=== PATIENT | female | born 1940 | race Caucasian/White ===

== ENCOUNTER 2024-05-30 11:31 | Day surgery (SDC) | payer MEDICARE, OTHER ==
[2024-05-30] MEDS ORDERED: dexAMETHasone sodium phosphate IJ ONE (11:32)
[2024-05-30] MEDS ORDERED: LIDOCAINE HCL 2% 100 MG/5 ML IJ ONE (11:32)
[2024-05-30] MEDS ORDERED: Lactated Ringers 500 ML IV ONE (11:39)
[2024-05-30] MEDS ORDERED: propofoL IV ONE (12:50)
--- NOTE | 2024-05-30 14:35 | XRAY ---
Indication: Right C2-C4 MBB. Intraoperative fluoroscopy provided for 22 seconds. 2 digital spot image submitted for interpretation demonstrates posterior needle tips projecting over expected right C2-C4 nerve roots. Correlate with intraoperative findings/report.
--- NOTE | 2024-05-30 15:20 | XRAY ---
22 seconds of fluoroscopy was used in surgery for a right C2-C4 MBB.
== END 2024-05-30 13:25 | disposition home or self-care (01) ==
LOC: SDC-PAIN 11:31
PROVIDERS: ATTEND Psychiatry & Neurology Pain Medicine
DX: M47.812 Spondylosis without myelopathy or radiculopathy, cervical region (principal)
CPT/HCPCS: 64490; 64491; 72040; 77002; J1100; J2704